=== PATIENT | female | born 1955 ===

== ENCOUNTER 2018-07-03 10:05 | Outpatient (CLI) | payer OTHER | END 2018-07-03 10:06 | disposition home or self-care (01) | LOC: C.MAMMO 10:05 | DX: Z12.31 Encounter for screening mammogram for malignant neoplasm of breast (principal) ==

== ENCOUNTER 2018-07-28 07:19 | Outpatient (CLI) | payer OTHER | END 2018-07-28 07:20 | disposition home or self-care (01) | LOC: C.CARD 07:19 ==